=== PATIENT | male | born 1990 | race Caucasian/White ===

== ENCOUNTER 2020-06-27 22:34 | Emergency (ER) | payer SELFPAY ==
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
[2020-06-27] MEDS ORDERED: PRD50T PO (22:55)
[2020-06-27] MEDS ORDERED: CEPH500T PO (22:55)
[2020-06-27 22:59] VITALS: BP 126/84
[2020-06-27] MEDS ORDERED: CEPHALEXIN 250 MG (KEFLEX) CAP PO ONE (23:00)
== END 2020-06-27 22:59 | disposition home or self-care (01) ==
LOC: ER FS 22:41
DX: M70.21 Olecranon bursitis, right elbow (principal); I10 Essential (primary) hypertension; Z79.52 Long term (current) use of systemic steroids
CPT/HCPCS: 99283